=== PATIENT | female | born 1935 | race Caucasian/White ===

== ENCOUNTER 2017-01-03 16:02 | Emergency (ER) | payer MEDICARE, SELFPAY | END 2017-01-03 16:47 | disposition home or self-care (01) | LOC: ER 16:02 | DX: M10.9 Gout, unspecified (principal); E11.9 Type 2 diabetes mellitus without complications; Z99.81 Dependence on supplemental oxygen; Z79.82 Long term (current) use of aspirin; Z79.4 Long term (current) use of insulin; Z79.899 Other long term (current) drug therapy ==